=== PATIENT | female | born 2005 | race Hispanic/Latino ===

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

== ENCOUNTER 2024-07-30 13:47 | Emergency (ER) | payer BC ==
[~2024-07-30] VITALS: Ht 152.4 cm; Wt 81.2 kg
[~2024-07-30 13:47] MED LIST: CYCL10TA16 PO; DICL500C PO; NAPR-1180 PO; RIZA-7 PO
[2024-07-30 13:48] VITALS: BP 107/63
[2024-07-30 14:35] LABS: BASOPHILS # (AUTO) 0.03 K/uL (0.00-0.20); BASOPHILS % (AUTO) 0.4 % (0.0-5.0); EOSINOPHILS # (AUTO) 0.13 K/uL (0.00-0.70); EOSINOPHILS % (AUTO) 1.6 % (0.0-8.0); HEMATOCRIT 40.7 % (36-48); IMMATURE GRANULOCYTE ABSOLUTE 0.02 K/uL (0-1); LYMPHOCYTES # (AUTO) 2.2 K/uL (1.0-4.8); LYMPHOCYTES % (AUTO) 27.4 % (21.0-51.0); MEAN CORPUSCULAR HEMOGLOBIN 27.3 pg (27.0-33.0); MEAN CORPUSCULAR HGB CONC 32.7 g/dL (32.0-36.0); MEAN CORPUSCULAR VOLUME 83.4 fL (80-100); MONOCYTES # (AUTO) 0.6 K/uL (0.1-1.0); MONOCYTES % (AUTO) 6.7 % (3.0-13.0); NEUTROPHILS # (AUTO) 5.2 K/uL (1.8-7.7); NEUTROPHILS % (AUTO) 63.7 % (40.0-77.0); PLATELET COUNT (AUTO) 329 K/uL (130-400); RED BLOOD CELL COUNT(AUTO) 4.88 MIL/uL (4.00-5.50); RED CELL DISTRIBUTION WIDTH 13.2 % (11.0-15.5); WHITE BLOOD COUNT (AUTO) 8.2 K/uL (4.8-10.8)
[2024-07-30 14:45] LABS: CREATININE 0.6 mg/dL (0.5-1.0); POTASSIUM 3.7 mmol/L (3.5-5.1)
[2024-07-30 15:05] LABS: B-TYPE NATRIURETIC PEPTIDE 24 pg/mL (0-100)
--- NOTE | 2024-07-30 15:12 | ERN ---
ED Note History of Present Illness Stated Complaint: SWELLING TO LEGS Chief Complaint: Lower Extremity Pain/Injury Time Seen by MD: 13:50 Time Seen by Midlevel: 13:55 Dictation: 19-year-old female with no past medical history coming in complaining of b ilateral foot swelling for the last two weeks. Patient states she was already seen at urgent care told everything was normal and came here for further evaluation. Patient denies any cough, shortness a breath, chest pain, chest discomfort. Allergies: Coded Allergies: No Known Drug Allergies (Unverified Allergy, Unknown, 09/02/21) Home Meds Active Scripts Dicloxacillin Sodium (Dicloxacillin Sodium) 500 Mg Capsule, 1 CAP PO QID for 7 Days, #28 CAP 0 Refills Prov:JACKIE AUGUSTINE MD 02/07/24 Rizatriptan Benzoate ([employer]) 10 Mg Tab.rapdis, 10 MG PO as directed, #12 TAB Prov:MEHRDDA RAO 09/02/21 Cyclobenzaprine HCl (Flexeril) 10 Mg Tab, 10 MG PO BID, #30 TAB Prov:MEHRDAD RAO 09/02/21 Naproxen (Naprosyn) 500 Mg Tablet, 500 MG PO BIDPC, #60 TAB Prov:MEHRDAD RAO 09/02/21 Past Medical History Past Medical History: No Pertinent History Surgical History: Tonsillectomy Family History: Negative Social History: Negative : 0 Review of System Dictation Constitutional: Negative for fever,chills, and weight loss Eyes: Negative for injury, pain,redness, and discharge ENT: Negative for injury,pain or swelling Cardiovascular: Negative for chest pain, palpitations, and edema Respiratory: Negative for shortness of breath, cough, and wheezing, Abdomen/GI: Negative for abdominal pain, nausea, vomiting, diarrhea, and constipation Back: Negative for injury and pain : Negative for injury, bleeding and discharge MS/Extremity: Negative for injury and deformity Skin: Negative for rash, and discoloration Neuro: Negative for headache, weakness, numbness, tingling, and seizure Psych: Negative for suicide ideation, homicidal ideation, and hallucinations Review of Systems: was completed Initial Vital Sign VS Vital Signs Date Time Temp Pulse Resp B/P (MAP) Pulse Ox O2 Delivery O2 Flow Rate FiO2 07/30/24 13:48 98.1 77 16 107/63 97 Room Air Physical Exam Dictation General: awake, alert, NAD Head/Face: Normocephalic, atraumatic Eyes: PERRL, EOMI, vision at baseline ENT: oral cavity clear, TMs clear, no signs of infection Neck: Trachea midline, supple, no nuchal rigidity Cardiovascular: RRR, normal S1/S2, No MRGs, no JVD Respiratory: CTAB, no respiratory distress, No rales or wheezes Abdomen: Soft, non-tender, non-distended, normal bowel sounds, no guarding or rebound. Skin: Warm, dry, normal turgor, no rash MS/Extremity: Pulses equal, no cyanosis, neurovascular intact, FROM Neuro: COAx4, GCS 15, strength 5/5, CN 2-12 intact, normal cerebellar exam, normal gait, Psych: Normal behavior, mood, and affect normal Results (Laboratory/Radiology) Laboratory/Radiology Laboratory Tests Test 07/30/24 14:30 White Blood Count 8.2 K/uL (4.8-10.8) Red Blood Count 4.88 MIL/uL (4.00-5.50) Hemoglobin 13.3 g/dL (12.0-16.0) Hematocrit 40.7 % (36-48) Mean Corpuscular Volume 83.4 fL (80-100) Mean Corpuscular Hemoglobin 27.3 pg (27.0-33.0) Mean Corpuscular Hemoglobin Concent 32.7 g/dL (32.0-36.0) Red Cell Distribution Width 13.2 % (11.0-15.5) Platelet Count 329 K/uL (130-400) Mean Platelet Volume 9.5 fL (7.5-10.5) Immature Granulocyte % (Auto) 0.2 % (0-1) Neutrophils (%) (Auto) 63.7 % (40.0-77.0) Lymphocytes (%) (Auto) 27.4 % (21.0-51.0) Monocytes (%) (Auto) 6.7 % (3.0-13.0) Eosinophils (%) (Auto) 1.6 % (0.0-8.0) Basophils (%) (Auto) 0.4 % (0.0-5.0) Neutrophils # (Auto) 5.2 K/uL (1.8-7.7) Lymphocytes # (Auto) 2.2 K/uL (1.0-4.8) Monocytes # (Auto) 0.6 K/uL (0.1-1.0) Eosinophils # (Auto) 0.13 K/uL (0.00-0.70) Basophils # (Auto) 0.03 K/uL (0.00-0.20) Absolute Immature Granulocyte (auto 0.02 K/uL (0-1) Nucleated Red Blood Cells 0.0 % (0.0-0.19) Sodium Level 141 mmol/L (136-145) Potassium Level 3.7 mmol/L (3.5-5.1) Chloride Level 109 mmol/L (101-111) Carbon Dioxide Level 31 mmol/L (21-32) Blood Urea Nitrogen 10 mg/dL (7-18) Creatinine 0.6 mg/dL (0.5-1.0) Glomerular Filtration Rate Calc 132 mL/min (>90) Random Glucose 91 mg/dL (70-105) Total Calcium 8.7 mg/dL (8.5-10.1) B-Type Natriuretic Peptide 24 pg/mL (0-100) Human Chorionic Gonadotropin, Quant 0 mIU/mL (0-5) Labs Reviewed?: Yes ED Course ED Course Orders Procedure Category Date Status Time Cbc With Differential LAB 07/30/24 Complete 14:24 Basic Metabolic Panel LAB 07/30/24 Complete 14:24 B-Type Natriuretic LAB 07/30/24 Complete Peptide 14:24 Hcg,Quantitative LAB 07/30/24 Complete 14:24 Vital Signs Date Time Temp Pulse Resp B/P (MAP) Pulse Ox O2 Delivery O2 Flow Rate FiO2 07/30/24 13:48 98.1 77 16 107/63 97 Room Air Medical Decision Making MDM MDM: 19-year-old female with no past medical history coming in complaining of bilateral foot swelling for the last two weeks. Patient states she was already seen at urgent care told everything was normal and came here for further evaluation. Patient denies any cough, shortness a breath, chest pain, chest discomfort. All blood work is unremarkable. Discussed with patient extensively to follow up with PCP if this continues to occur. Gave recommendations like elevate extremities, compression stockings and limit her sodium intake at home. Patient verbalized understanding, answered all questions. Differential diagnosis: Pyelo edema, fluid retention, Rationale: Tests considered and ordered secondary to shared decision making include: Previous outside records reviewed: Old ER visits. Risk of complication and/or morbidity or mortality of patient management: None Medications-Per medication reconciliation Need for hospitalization: Patient does not meet criteria for hospitalization. Need for emergency major/minor surgery: No There are no social concerns with this patient. Prescription drug management Prescriptions will include symptomatic care Patient's prior external medical records from other ER visits were reviewed by me as indicated. Prior testing and results from previous visits were reviewed. Prior tests were taken into account with medical decision making and resource utilization, independent historian/historians were used to obtain complete medical history. I independently interpreted the test that were performed, results were reviewed by me and considered findings on radiology if ordered. Medical management and examination interpretation discussions were had by me with other qualified healthcare professionals as indicated for the patient's care. DX & DISP Disposition: Discharge Departure Impression: Primary Impression: Ankle swelling Condition: Stable Additional Instructions: Breathing your labs were normal. As previously discussed follow up with your primary doctor this continues to occur. Elevate legs when possible, use compression socks and limit sodium intake at home. Return Referrals: SELF,REFERRAL (PCP) Time of Disposition: 15:11 I have reviewed the case, and I agree with, Diagnosis and Plan MATTHEW RAJAN NP July 30, 2024 15:12
[2024-07-30 16:30] VITALS: PULSE 80; RESP 16; TEMP 98.3; O2SAT 98
== END 2024-07-30 16:50 | disposition home or self-care (01) ==
LOC: EDH 13:47
DX: M79.89 Other specified soft tissue disorders (principal); R10.2 Pelvic and perineal pain; Z90.89 Acquired absence of other organs
CPT/HCPCS: 36415; 80048; 83880; 84702; 85025; 99283